=== PATIENT | male | born 1935 | race Caucasian/White ===

== ENCOUNTER 2017-04-26 19:26 | Emergency (ER) | payer MEDICARE ==
[~2017-04-26] VITALS: Ht 167.6 cm; Wt 85.1 kg
[~2017-04-26 19:26] MED LIST: ACET325 PO; CARV12.52 PO; COUM7.5T PO; FURO80 PO; GLIM2TAB PO; ISOS30 PO; KCL20 PO; LOPE2 PO; PRED10 PO; WARF5TAB PO; ZOCO40TA PO
[2017-04-26 19:35] VITALS: BP 108/55; PULSE 80; RESP 22; TEMP 98.1; O2SAT 92
[2017-04-26 19:45] VITALS: O2SAT 92
--- NOTE | 2017-04-26 19:54 | PD ---
HPI Chief Complaint: shortness of breath Time Seen by Provider: 19:38 Travel History International Travel<30 days: No Contact w/Intl Traveler<30days: No Traveled to known affect area: No History of Present Illness HPI The patient is a 81-year-old Citizen Of [place] male who presents to the emergency department for shortness of breath. The patient speaks [place], family translated bedside per his request. The patient notes a 1-2 day history of increasing cough which is mostly dry nonproductive with increasing shortness of breath. The shortness of breath is worse with lying supine and exertion. The patient sleeps in a recliner on a chronic basis secondary to shortness of breath. He has chronic lower extremity edema, but increasing shortness of breath. The patient is followed by his primary physician, Dr. 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 Frank Oliveira. The patient denies any chest pain, fever, chills, or sweats. He denies any associated nausea, vomiting, abdominal pain, fever, chills, or sweats. Symptoms are moderate, worse with exertion, minimally alleviated at rest. PFSH Past Medical History Hx Anticoagulant Therapy: Yes (C[place]MADIN) Arthritis: Yes (Knee) Anxiety: No Depression: No Heart Rhythm Problems: Yes Cancer: No Cardiovascular Problems: Yes High Cholesterol: Yes Diabetes: Yes Endocrine: Yes Gastrointestinal Disorders: No Genitourinary: No Hypertension: Yes Immune Disorder: No Musculoskeletal: No Neurologic: No Psychiatric: No Reproductive: No Respiratory: No Past Surgical History Coronary Artery Bypass Graft: Yes (5 YEARS AGO) Eye Surgery: Yes (Cataract) Other Surgery: Yes (1996) Social History Alcohol Use: Yes (OCC) Tobacco Use: No Substance Use: No Allergies-Medications (Allergen,Severity, Reaction): Coded Allergies: No Known Allergies (Verified , 05/17/15) Reported Meds & Prescriptions Reported Meds & Active Scripts Active Reported Warfarin 5 Mg Tab 5 Mg PO DAILY Simvastatin 40 Mg Tab 40 Mg PO HS K-Tab (Potassium Chloride) 20 Meq Tab 20 Meq PO DAILY Isosorbide Mononitrate ER (Isosorbide Mononitrate) 30 Mg Azucena 30 Mg PO DAILY Glimepiride 1 Mg Tab 0.5 Mg PO DAILY PRN Take with breakfast or first main meal Ferrous Sulfate 325 Mg (65 Mg Iron) Tablet 325 Mg PO DAILY Carvedilol 25 Mg Tab 25 Mg PO BID Bumetanide 1 Mg Tab 1 Mg PO BID Review of Systems Except as stated in HPI: all other systems reviewed are Neg General / Constitutional: No: Fever Cardiovascular: Positive: Dyspnea on exertion, No: Chest Pain or Discomfort Respiratory: Positive: Cough, Shortness of Breath, Orthopnea Gastrointestinal: No: Nausea, Vomiting, Abdominal Pain Musculoskeletal: Positive: Weakness, Edema Physical Exam Narrative GENERAL: Awake, alert, pleasant 81-year-old male appears his stated age and appears in mild respiratory distress. SKIN: Focused skin assessment warm/dry. HEAD: Atraumatic. Normocephalic. EYES: No injection or drainage. ENT: No nasal bleeding or discharge. Mucous membranes pink and moist. NECK: Trachea midline. Mild JVD. CARDIOVASCULAR: Regular rate and rhythm. No murmur appreciated. RESPIRATORY: Tachypnea with a respiratory rate of 22. Diminished breath sounds in the bases bilaterally. GASTROINTESTINAL: Abdomen soft, slightly distended, no rebound tenderness. MUSCULOSKELETAL: No obvious deformities. No clubbing. No cyanosis. Bilateral lower extremity pitting edema from the knees inferiorly. NEUROLOGICAL: Awake and alert. No obvious cranial nerve deficits. Motor grossly within normal limits. Normal speech. PSYCHIATRIC: Appropriate mood and affect; insight and judgment normal. Data Data Last Documented VS Vital Signs Date Time Temp Pulse Resp B/P (MAP) Pulse Ox O2 Delivery O2 Flow Rate FiO2 04/26/17 19:45 92 Nasal Cannula 2.00 04/26/17 19:45 04/26/17 19:35 98.1 80 22 Orders Orders Complete Blood Count With Diff (04/26/17 19:49) Comprehensive Metabolic Panel (04/26/17 19:49) B-Type Natriuretic Peptide (04/26/17 19:49) Magnesium (Mg) (04/26/17 19:49) Ckmb (Isoenzyme) Profile (04/26/17 19:49) Troponin I (04/26/17 19:49) Iv Access Insert/Monitor (04/26/17 19:49) Electrocardiogram (04/26/17 19:49) Ecg Monitoring (04/26/17 19:49) Oximetry (04/26/17 19:49) Oxygen Administration (04/26/17 19:49) Chest, Single Ap (04/26/17 19:49) Sodium Chloride 0.9% Flush (Ns Flush) (04/26/17 20:00) Furosemide Inj (Lasix Inj) (04/26/17 20:00) Aspirin Chew (Aspirin Chew) (04/26/17 20:00) Act Partial Throm Time (Ptt) (04/26/17 19:54) Prothrombin Time / Inr (Pt) (04/26/17 19:54) CKMB (04/26/17 19:50) CKMB% (04/26/17 19:50) Labs Laboratory Tests Test 04/26/17 19:50 White Blood Count 9.2 TH/MM3 Red Blood Count 4.18 MIL/MM3 Hemoglobin 12.7 GM/DL Hematocrit 37.0 % Mean Corpuscular Volume 88.7 FL Mean Corpuscular Hemoglobin 30.5 PG Mean Corpuscular Hemoglobin Concent 34.3 % Red Cell Distribution Width 15.1 % Platelet Count 136 TH/MM3 Mean Platelet Volume 8.7 FL Neutrophils (%) (Auto) 71.2 % Lymphocytes (%) (Auto) 13.5 % Monocytes (%) (Auto) 8.4 % Eosinophils (%) (Auto) 4.5 % Basophils (%) (Auto) 2.4 % Neutrophils # (Auto) 6.6 TH/MM3 Lymphocytes # (Auto) 1.2 TH/MM3 Monocytes # (Auto) 0.8 TH/MM3 Eosinophils # (Auto) 0.4 TH/MM3 Basophils # (Auto) 0.2 TH/MM3 CBC Comment DIFF FINAL Differential Comment Prothrombin Time 26.0 SEC Prothromb Time International Ratio 2.3 RATIO Activated Partial Thromboplast Time 34.2 SEC Blood Urea Nitrogen 47 MG/DL Creatinine 1.70 MG/DL Random Glucose 91 MG/DL Total Protein 6.9 GM/DL Albumin 3.1 GM/DL Calcium Level 8.2 MG/DL Magnesium Level 2.1 MG/DL Alkaline Phosphatase 85 U/L Aspartate Amino Transf (AST/SGOT) 27 U/L Alanine Aminotransferase (ALT/SGPT) 19 U/L Total Bilirubin 0.9 MG/DL Sodium Level 141 MEQ/L Potassium Level 3.7 MEQ/L Chloride Level 106 MEQ/L Carbon Dioxide Level 26.0 MEQ/L Anion Gap 9 MEQ/L Estimat Glomerular Filtration Rate 39 ML/MIN Total Creatine Kinase 105 U/L Creatine Kinase MB 1.1 NG/ML Troponin I 0.03 NG/ML B-Type Natriuretic Peptide 977 PG/ML MDM Medical Decision Making Medical Screen Exam Complete: Yes Emergency Medical Condition: Yes Medical Record Reviewed: Yes Interpretation(s) EKG reveals atrial fibrillation with PVC. Heart rate 72. Chest x-ray reveals stable chest with no acute disease. Last Impressions Chest X-Ray 04/26/171948 Signed Impressions: Service Date/Time: Wednesday, April 26, 2017 20:11 - CONCLUSION: Stable chest no acute disease Lm Francisco MD Laboratory Tests Test 04/26/17 19:50 White Blood Count 9.2 TH/MM3 Red Blood Count 4.18 MIL/MM3 Hemoglobin 12.7 GM/DL Hematocrit 37.0 % Mean Corpuscular Volume 88.7 FL Mean Corpuscular Hemoglobin 30.5 PG Mean Corpuscular Hemoglobin Concent 34.3 % Red Cell Distribution Width 15.1 % Platelet Count 136 TH/MM3 Mean Platelet Volume 8.7 FL Neutrophils (%) (Auto) 71.2 % Lymphocytes (%) (Auto) 13.5 % Monocytes (%) (Auto) 8.4 % Eosinophils (%) (Auto) 4.5 % Basophils (%) (Auto) 2.4 % Neutrophils # (Auto) 6.6 TH/MM3 Lymphocytes # (Auto) 1.2 TH/MM3 Monocytes # (Auto) 0.8 TH/MM3 Eosinophils # (Auto) 0.4 TH/MM3 Basophils # (Auto) 0.2 TH/MM3 CBC Comment DIFF FINAL Differential Comment Prothrombin Time 26.0 SEC Prothromb Time International Ratio 2.3 RATIO Activated Partial Thromboplast Time 34.2 SEC Blood Urea Nitrogen 47 MG/DL Creatinine 1.70 MG/DL Random Glucose 91 MG/DL Total Protein 6.9 GM/DL Albumin 3.1 GM/DL Calcium Level 8.2 MG/DL Magnesium Level 2.1 MG/DL Alkaline Phosphatase 85 U/L Aspartate Amino Transf (AST/SGOT) 27 U/L Alanine Aminotransferase (ALT/SGPT) 19 U/L Total Bilirubin 0.9 MG/DL Sodium Level 141 MEQ/L Potassium Level 3.7 MEQ/L Chloride Level 106 MEQ/L Carbon Dioxide Level 26.0 MEQ/L Anion Gap 9 MEQ/L Estimat Glomerular Filtration Rate 39 ML/MIN Total Creatine Kinase 105 U/L Creatine Kinase MB 1.1 NG/ML Troponin I 0.03 NG/ML B-Type Natriuretic Peptide 977 PG/ML Differential Diagnosis Differential diagnosis includes congestive heart failure, cardiomyopathy, volume overload, pleural effusion, pulmonary edema, acute coronary syndrome, bronchitis, pneumonia, pulmonary embolism. Narrative Course IV was established, labs are drawn and sent, and the patient was placed on cardiac telemetry monitoring and continuous pulse oximetry monitoring. EKG was ordered and interpreted. Chest x-ray was obtained. BNP was sent to lab. The patient was administered Lasix 40 mg intravenously and aspirin 162 mg orally. Chest x-ray reveals no acute disease. The patient's INR therapeutic at 2.3. BNP is elevated 977, troponin is within normal limits is 0.03. I reviewed the EMR, the patient's BNP is been more elevated in the past. X-ray reveals no overt pulmonary edema. The patient does appear to have chronic cardiomyopathy with chronic lower extremity edema and early failure. The patient was administered Lasix intravenously and is advised to follow-up with his business resiliency manager, Dr. Oliveira, in the morning. Return if symptoms worsen or progress. Diagnosis Primary Impression: Congestive heart failure Qualified Codes: I50.9 - Heart failure, unspecified Patient Instructions: General Instructions Additional Instructions: Follow-up with your business resiliency manager Dr. Oliveira this week. Please provide the patient a copy of his x-ray results and lab results at discharge. Return sooner if symptoms worsen or progress. Elevate legs and use MATT hose as needed. Med/Other Pt SpecificInfo: No Change to Meds Disposition: 01 DISCHARGE HOME Condition: Stable Naresh Joiner MD Apr 26, 2017 19:54
[2017-04-26] MEDS ORDERED: ASPIRIN 81 MG CHEW TAB CHEW ONE (20:00)
[2017-04-26] MEDS ORDERED: SODIUM CHLORIDE 0.9% FLUSH 10 ML FLUSH IVF PRN (20:00)
[2017-04-26] MEDS ORDERED: FUROSEMIDE 40 MG/4 ML VIAL IVP ONE (20:00)
[2017-04-26 20:05] LABS: AUTOMATED NEUTROPHIL # 6.6 TH/MM3 (1.8-7.7); BASOPHIL # 0.2 TH/MM3 (0-0.2); BASOPHIL % 2.4 % (0.0-2.0); EOSINOPHIL # 0.4 TH/MM3 (0-0.4); EOSINOPHIL % 4.5 % (0.0-4.0); HEMOGLOBIN 12.7 GM/DL (13.0-17.0); LYMPH % 13.5 % (9.0-44.0); LYMPHOCYTE # 1.2 TH/MM3 (1.0-4.8); MEAN CELL VOLUME 88.7 FL (80.0-100.0); MEAN CORPUSCULAR HEMOGLOBIN 30.5 PG (27.0-34.0); MEAN CORPUSCULAR HGB CONC 34.3 % (32.0-36.0); MEAN PLATELET VOLUME 8.7 FL (7.0-11.0); MONO % 8.4 % (0.0-8.0); MONOCYTE # 0.8 TH/MM3 (0-0.9); NEUT % 71.2 % (16.0-70.0); PLATELET COUNT 136 TH/MM3 (150-450); RED BLOOD COUNT 4.18 MIL/MM3 (4.50-5.90); RED CELL DISTRIBUTION WIDTH 15.1 % (11.6-17.2); WHITE BLOOD COUNT 9.2 TH/MM3 (4.0-11.0)
[2017-04-26 20:18] LABS: CHLORIDE 106 MEQ/L (98-107); SODIUM (NA) 141 MEQ/L (136-145)
[2017-04-26 20:22] LABS: ALBUMIN 3.1 GM/DL (3.4-5.0); CALCIUM 8.2 MG/DL (8.5-10.1); GLUCOSE,RANDOM 91 MG/DL (74-106); INTERNATIONAL NORMALIZED RATIO 2.3 RATIO; MAGNESIUM 2.1 MG/DL (1.5-2.5)
[2017-04-26 20:23] LABS: BLOOD UREA NITROGEN 47 MG/DL (7-18)
[2017-04-26 20:25] LABS: ALT (GPT) 19 U/L (12-78)
[2017-04-26 20:26] LABS: AST (GOT) 27 U/L (15-37); GLOMERULAR FILTRATION RATE 39 ML/MIN (>89)
--- NOTE | 2017-04-26 20:26 | RADRPT ---
EXAM DATE/TIME: 04/26/2017 20:11 [facility] COMPARISON: CHEST SINGLE AP, May 17, 2015, 15:23. INDICATIONS : Short of breath. MEDICAL HISTORY : Cardiovascular disease. SURGICAL HISTORY : CABG. ENCOUNTER: Initial ACUITY: 1 day PAIN SCORE: 0/10 LOCATION: Bilateral chest FINDINGS: There is stable mild cardiac enlargement. No evidence of infiltrate or effusion. Mediastinal contours are satisfactory. Sternotomy wires are present. CONCLUSION: Stable chest no acute disease Lm Francisco MD on April 26, 2017 at 20:22 Board Certified Radiologist. This report was verified electronically.
[2017-04-26 20:27] LABS: TOTAL BILIRUBIN ADULT 0.9 MG/DL (0.2-1.0); TOTAL PROTEIN 6.9 GM/DL (6.4-8.2)
[2017-04-26 20:28] LABS: ALKALINE PHOSPHATASE 85 U/L (45-117)
[2017-04-26 20:30] LABS: TROPONIN I 0.03 NG/ML (0.02-0.05)
[2017-04-26] MEDS ORDERED: BUME1TAB PO (21:00)
[2017-04-26] MEDS ORDERED: CARV25TA PO (21:00)
[2017-04-26] MEDS ORDERED: POTA1TAB4 PO (21:01)
[2017-04-26] MEDS ORDERED: SIMV40TA PO (21:01)
[2017-04-26] MEDS ORDERED: WARF-23 PO (21:01)
[2017-04-26] MEDS ORDERED: FERR325T8 PO (21:01)
[2017-04-26] MEDS ORDERED: ISOS30TA3 PO (21:01)
[2017-04-26] MEDS ORDERED: GLIM1TAB PO (21:01)
[2017-04-26 21:18] VITALS: BP 144/56
--- NOTE | 2017-04-27 14:57 | EKG ---
Date Performed: 04/26/2017 Time Performed: 20:28:21 PTAGE: 81 years EKG: ATRIAL FIBRILLATION WITH ABERRANT CONDUCTION OR VENTRICULAR PREMATURE COMPLEXES INDETERMINA TE AXIS PATTERN CONSISTENT WITH PULMONARY DISEASE POSSIBLE INFERIOR MYOCARDIAL INFARCTION ABNORMAL EC G PREVIOUS TRACING : 05/17/2015 19.30 Compared to prior tracing no significant change DOCTOR: Jyoti Francis Interpretating Date/Time 04/27/2017 14:53:27
== END 2017-04-26 21:39 | disposition home or self-care (01) ==
LOC: PHED 19:26
DX: I50.9 Heart failure, unspecified (principal); I48.91 Unspecified atrial fibrillation; Z79.01 Long term (current) use of anticoagulants; E11.9 Type 2 diabetes mellitus without complications; I11.0 Hypertensive heart disease with heart failure
CPT/HCPCS: 71010; 80053; 82550; 82552; 83735; 83880; 84484; 85025; 85610; 85730; 93005; 96374; 99285; J1940